=== PATIENT | female | born 1980 | race Caucasian/White ===

== ENCOUNTER 2016-10-18 22:20 | Emergency (ER) | payer OTHER ==
[~2016-10-18] VITALS: Ht 162.6 cm; Wt 49.9 kg
[2016-10-18 23:13] LABS: BILIRUBIN,URINE NEGATIVE (NEG); GLUCOSE,URINE NEGATIVE (NEG); NITRITE,URINE NEGATIVE (NEG); PROTEIN,URINE NEGATIVE (NEG-TRACE); UROBILINOGEN,URINE 0.2 mg/dL (0.2 mg/dL)
[2016-10-18 23:20] LABS: BACTERIA,URINE 0 /HPF (0-FEW); RBC,URINE OCC /HPF (0-2); WBC,URINE OCC /HPF (0-4)
[2016-10-18 23:21] LABS: SQUAMOUS EPITHELIAL CELL,UR FEW /LPF
[2016-10-18] MEDS ORDERED: cefTRIAXone IM 250 MG VIAL IM ONE (23:45)
[2016-10-18] MEDS ORDERED: AZITHROMYCIN 250 MG TABLET. PO ONE (23:45)
[2016-10-18] MEDS ORDERED: METR500T8 PO (23:46)
[2016-10-19] VITALS: BP 168/102
[2016-10-19] MEDS ORDERED: metroNIDAZOLE 500 MG TABLET PO ONE
--- NOTE | 2016-10-19 00:38 | ED.ADGEN ---
Past Medical History Past Medical History: Anxiety, Bipolar, Depression, Other Additional Past Medical Histor: ADHD, sickle cell trait Past Surgical History: Other Additional Past Surgical Histo: eye Alcohol Use: Occasionally Drug Use: None Adult General Chief Complaint Chief Complaint: VAGINAL PROBLEM HPI HPI Patient is a 35 year old woman, history of hypertension, anxiety, bipolar disorder, who presents to the emergency department with complaint of vaginal discharge, and concern for possible STI exposure. Patient declined to give details, states that she has not had direct penetrating intercourse, but has done "other things". Denies any injuries. Denies any injuries, any vaginal pain. States that the vaginal discharge started a few days ago. Describes it as white and thick. States he previously had a yeast infection and thinks that she may be yeast infection as well. She denies abdominal pain, nausea or vomiting, any focal weakness, numbness, tingling, swelling extremities, rash, mouth or dental pain, sore throat or other symptoms. No urinary complaints. Has not taken any medications prior to coming to the ED. Review of Systems Review of Systems Constitutional: Denies fever or chills. [] Eyes: Denies change in visual acuity. [] HENT: Denies nasal congestion or sore throat. [] Respiratory: Denies cough or shortness of breath. [] Cardiovascular: Denies chest pain or edema. [] GI: Denies abdominal pain, nausea, vomiting, bloody stools or diarrhea. [] : Denies dysuria. [] Vaginal discharge. Musculoskeletal: Denies back pain or joint pain. [] Integument: Denies rash. [] Neurologic: Denies headache, focal weakness or sensory changes. [] Endocrine: Denies polyuria or polydipsia. [] Lymphatic: Denies swollen glands. [] Psychiatric: Denies depression or anxiety. [] Current Medications Current Medications Current Medications Medications (Trade) Dose Ordered Sig/Gómez Start Time Stop Time Status Last Admin Dose Admin Azithromycin (Zithromax) 1,000 mg 1X ONCE 10/18/16 23:45 10/18/16 23:46 DC 10/18/16 23:39 1,000 MG Ceftriaxone Sodium (Rocephin Im) 250 mg 1X ONCE 10/18/16 23:45 10/18/16 23:46 DC 10/18/16 23:40 250 MG Metronidazole (Flagyl) 500 mg 1X ONCE 10/19/16 00:00 10/19/16 00:01 DC 10/18/16 23:52 500 MG Allergies Allergies Allergies Coded Allergies Type Severity Reaction Last Updated Verified No Known Drug Allergies 06/07/15 No Physical Exam Physical Exam Constitutional: Well developed, well nourished, no acute distress, non-toxic appearance. [] HENT: Normocephalic, atraumatic, bilateral external ears normal, oropharynx moist, no oral exudates, nose normal. [] Eyes: PERRLA, EOMI, conjunctiva normal, no discharge. [] Neck: Normal range of motion, no tenderness, supple, no stridor. [] Cardiovascular:Heart rate regular rhythm, no murmur , S1, S2, rubs or gallops.[] Lungs & Thorax: Bilateral breath sounds clear to auscultation, no wheezing, rhonchi, rales. No chest or crepitus or tenderness. [] Abdomen: Bowel sounds normal, soft, no tenderness, no rebound, rigidity, no guarding, no masses, no pulsatile masses. [] Skin: Warm, dry, no erythema, no rash. [] Back: No tenderness, no CVA tenderness. [] Extremities: No tenderness, no cyanosis, no clubbing, ROM intact, no edema. [] Neurologic: Alert and oriented X 3, normal motor function, normal sensory function, no focal deficits noted. [] Psychologic: Affect normal, judgement normal, mood normal. [] Pelvic examination: Patient with a normal-appearing external examination, bimanual examination reveals mild tenderness with motion of the cervix, no adnexal tenderness or masses identified, patient with moderate amount of white discharge noted on glove. Speculum examination reveals normal-appearing cervix, with moderate amount of thin white discharge. Specimens taken without issue. Current Patient Data Vital Signs Vital Signs Date Time Temp Pulse Resp B/P (MAP) Pulse Ox O2 Delivery O2 Flow Rate FiO2 10/19/16 00:00 70 20 168/102 (124) 97 Room Air 10/18/16 22:25 98.4 98.4 Lab Values Laboratory Tests Test 10/18/16 23:00 10/18/16 23:05 Urine Collection Type U cath Urine Color Yellow Urine Clarity Clear Urine pH 6.0 Urine Specific [place] 1.010 Urine Protein Negative mg/dL (NEG-TRACE) Urine Glucose (UA) Negative mg/dL (NEG) Urine Ketones (Stick) Negative mg/dL (NEG) Urine Blood Negative (NEG) Urine Nitrite Negative (NEG) Urine Bilirubin Negative (NEG) Urine Urobilinogen Dipstick 0.2 mg/dL (0.2 mg/dL) Urine Leukocyte Esterase Negative (NEG) Urine RBC Occ /HPF (0-2) Urine WBC Occ /HPF (0-4) Urine Squamous Epithelial Cells Few /LPF Urine Amorphous Sediment Present /HPF Urine Bacteria 0 /HPF (0-FEW) Urine Mucus Slight /LPF POC Urine HCG, Qualitative Hcg negative (Negative) Microbiology 10/18/16 Wet Prep - Final, Complete EKG EKG Not indicated.[] Radiology/Procedures Radiology/Procedures Not indicated.[] Course & Med Decision Making Course & Med Decision Making Pertinent Labs and Imaging studies reviewed. (See chart for details) Patient noted to be hypertensive upon arousing the emergency department, is in line with previous blood pressures. Patient does have history of hypertension, and this was discussed with patient by nurse Dejesus, plan is for patient to follow-up with a primary care provider, she is asymptomatic, no indications for intervention at this time. Importance of follow-up discussed, patient voices understanding. Given a list of available primary care providers in the area by nursing staff. After examination and discussion at bedside, patient would like to receive prophylaxis for chlamydia and gonorrhea, and was given ceftriaxone and azithromycin in the ED without issue. Discussed with patient that cultures will be sent for evaluation initially contacted with positive results. Also discussed in detail with patient the need to follow-up with an [employer] over the health department for referral, limited STI testing. Patient voiced understanding and agreement. Wet prep revealed bacterial vaginosis, no other findings this was discussed with patient, indicating not a sexual transmitted disease, but the rest of the plan stays as previously discussed. Patient voiced understanding and agreement, received first dose of metronidazole in the ED. Patient was discharged home with prescription and precautions are metronidazole , and plan as above. Dragon Disclaimer Dragon Disclaimer This electronic medical record was generated, in whole or in part, using a voice recognition dictation system. Departure Impression: Primary Impression: Vaginal discharge Additional Impressions: Bacterial vaginosis Possible exposure to STD Disposition: HOME, SELF-CARE Condition: STABLE Scripts Metronidazole (METRONIDAZOLE) 500 Mg Tablet 1 TAB PO BID, #14 TAB Prov: ANURADHA LANZA DO 10/18/16 Problem Qualifiers AUNRADHA LANZA DO Oct 19, 2016 00:38
== END 2016-10-19 | disposition home or self-care (01) ==
LOC: ER 22:20
DX: N89.8 Other specified noninflammatory disorders of vagina (principal); N76.0 Acute vaginitis; B96.89 Other specified bacterial agents as the cause of diseases classified elsewhere; F31.9 Bipolar disorder, unspecified; I10 Essential (primary) hypertension; F90.9 Attention-deficit hyperactivity disorder, unspecified type; Z86.2 Personal history of diseases of the blood and blood-forming organs and certain disorders involving the immune mechanism
CPT/HCPCS: 81001; 81025; 87491; 87591; 96372; 99284; J0696; Q0111; Q0144

== ENCOUNTER 2017-09-01 14:38 | Emergency (ER) | payer OTHER ==
[2017-09-01 15:44] LABS: ADD MAN DIFF? YES; BASO # 0.1 x10^3/uL (0.0-0.2); BASO % 1 % (0-3); EOS # 0.2 x10^3/uL (0.0-0.7); EOS % 3 % (0-3); HEMATOCRIT 34.7 % (36.0-47.0); HEMOGLOBIN 11.6 g/dL (12.0-15.5); LYMPH # 2.9 x10^3/uL (1.0-4.8); LYMPH % 37 % (24-48); MEAN CORPUSCULAR HEMOGLOBIN 21 pg (25-35); MEAN CORPUSCULAR HGB CONC 33 g/dL (31-37); MEAN CORPUSCULAR VOLUME 63 fL (79-100); MONO # 0.4 x10^3/uL (0.0-1.1); MONO % 5 % (0-9); NEUT # 4.2 x10^3uL (1.8-7.7); NEUT % 54 % (31-73); PLATELET COUNT 328 x10^3/uL (140-400); RED BLOOD COUNT 5.53 x10^6/uL (3.50-5.40); RED CELL DISTRIBUTION WIDTH 20.4 % (11.5-14.5); WHITE BLOOD COUNT 7.7 x10^3/uL (4.0-11.0)
[2017-09-01 15:51] LABS: ANION GAP 11 (6-14); BLOOD UREA NITROGEN 12 mg/dL (7-20); BUN/CREATININE RATIO 10 (6-20); CALCIUM 9.1 mg/dL (8.5-10.1); CARBON DIOXIDE 24 mmol/L (21-32); CHLORIDE 99 mmol/L (98-107); CREATININE 1.2 mg/dL (0.6-1.0); GFR 50.3; GLUCOSE 156 mg/dL (70-99); POTASSIUM 3.7 mmol/L (3.5-5.1); SODIUM 134 mmol/L (136-145)
[2017-09-01 15:56] LABS: ALBUMIN 3.6 g/dL (3.4-5.0); ALK PHOS 62 U/L (46-116); ALT (SGPT) 29 U/L (14-59); AST (SGOT) 44 U/L (15-37); TOTAL BILIRUBIN 0.5 mg/dL (0.2-1.0); TOTAL PROTEIN 7.1 g/dL (6.4-8.2)
[2017-09-01 16:52] LABS: % EOS 2 % (0-5); % LYMPHS 33 % (24-48); % MONOS 4 % (0-10); % SEGS 61 % (35-66); PLT ESTIMATE ADEQUATE (ADEQUATE)
[2017-09-01 17:04] LABS: ANISOCYTOSIS MOD; HYPOCHROMIA SLIGHT; MICROCYTOSIS MARKED; POLYCHROMASIA SLIGHT
[2017-09-01 17:04] LABS: URINE HCG POC HCG NEGATIVE (Negative)
[2017-09-01 17:05] LABS: BILIRUBIN,URINE NEGATIVE (NEG); CLARITY,URINE CLEAR; GLUCOSE,URINE NEGATIVE (NEG); NITRITE,URINE NEGATIVE (NEG); PROTEIN,URINE NEGATIVE (NEG-TRACE); TARGET CELLS FEW; UROBILINOGEN,URINE 0.2 mg/dL (0.2 mg/dL)
[2017-09-01 17:10] LABS: COLOR,URINE STRAW
[2017-09-01 17:12] LABS: BACTERIA,URINE MANY /HPF (0-FEW); RBC,URINE OCC /HPF (0-2); SQUAMOUS EPITHELIAL CELL,UR FEW /LPF
[2017-09-01 17:17] LABS: BARBITURATES NEG (NEG); BENZODIAZEPINES POS (NEG); CANNABINOIDS NEG (NEG); COCAINE NEG (NEG); METHADONE NEG (NEG); OPIATES NEG (NEG); PHENCYCLIDINE POS (NEG)
[2017-09-01 17:19] LABS: AMPHETAMINE/METHAMPHETAMINE NEG (NEG); ETHANOL, URINE NEG (NEG)
== END 2017-09-01 18:45 | disposition home or self-care (01) ==
LOC: ER 14:38
DX: T74.11XA Adult physical abuse, confirmed, initial encounter (principal); S51.812A Laceration without foreign body of left forearm, initial encounter (principal); R51 Headache; R40.4 Transient alteration of awareness; F41.9 Anxiety disorder, unspecified; F31.9 Bipolar disorder, unspecified; D57.3 Sickle-cell trait; F90.9 Attention-deficit hyperactivity disorder, unspecified type; F16.10 Hallucinogen abuse, uncomplicated; Y08.89XA Assault by other specified means, initial encounter; Y93.89 Activity, other specified; Y92.89 Other specified places as the place of occurrence of the external cause; Y99.8 Other external cause status
CPT/HCPCS: 36415; 70450; 80053; 80307; 81001; 81025; 84702; 85007; 85025; 87086; 87186; 99285-25